=== PATIENT | female | born 1995 | race Two or more races ===

== ENCOUNTER 2019-03-22 03:57 | Emergency (ER) | payer MEDICAID ==
[~2019-03-22] VITALS: Ht 154.9 cm; Wt 81.8 kg
[2019-03-22] MEDS ORDERED: ibuprofen tablet 400 MG TABLET PO ONE (04:25)
[2019-03-22] MEDS ORDERED: PRED20TA PO (04:27)
[2019-03-22] MEDS ORDERED: AMOX500C2 PO (04:27)
[2019-03-22] MEDS ORDERED: ONDA4TAB6 PO (04:27)
[2019-03-22] MEDS ORDERED: HYDR-3965 PO (04:27)
[2019-03-22 04:49] VITALS: BP 138/90
== END 2019-03-22 04:45 | disposition home or self-care (01) ==
LOC: ER 03:58
DX: K02.9 Dental caries, unspecified (principal); Z79.899 Other long term (current) drug therapy
CPT/HCPCS: 99283

== ENCOUNTER 2019-12-17 18:37 | Emergency (ER) | payer MEDICAID ==
[~2019-12-17] VITALS: Ht 154.9 cm; Wt 81.8 kg
[~2019-12-17 18:37] MED LIST: ONDA4TAB6 PO
[2019-12-17 19:04] VITALS: BP 138/71
== END 2019-12-17 19:37 | disposition home or self-care (01) ==
LOC: ER 18:37
DX: S93.401A Sprain of unspecified ligament of right ankle, initial encounter (principal); M25.571 Pain in right ankle and joints of right foot; Z79.899 Other long term (current) drug therapy; X58.XXXA Exposure to other specified factors, initial encounter; Y93.89 Activity, other specified; Y92.89 Other specified places as the place of occurrence of the external cause; Y99.8 Other external cause status
CPT/HCPCS: 29515; 29540; 73610; 99283

== ENCOUNTER 2021-09-04 21:56 | Emergency (ER) | payer MEDICAID ==
[~2021-09-04] VITALS: Ht 152.4 cm; Wt 99.0 kg
[2021-09-04 22:40] LABS: CLARITY,URINE SLIGHTLY CLOUDY (Clear); COLOR,URINE YELLOW (Yellow); GLUCOSE, URINE NEGATIVE (Neg); KETONES,URINE TRACE mg/dl (Neg); LEUKOCYTE ESTERASE ,URINE NEGATIVE (Neg); NITRITES, URINE NEGATIVE (Neg); OCCULT BLOOD,URINE NEGATIVE (Neg); PROTEIN,URINE NEGATIVE (Neg); UROBILINOGEN,URINE 0.2 E.U/dL (0.2-1.0)
[2021-09-04 22:42] LABS: UA COLLECTION TYPE STRAIGHT CATH
[2021-09-04] MEDS ORDERED: morphine 4 MG/ML inj SYRINge IV PRN (22:50)
[2021-09-04] MEDS ORDERED: ondansetron/PF 4mg/2ml inj IV ONE (22:50)
[2021-09-04] MEDS ORDERED: normal saline 1000ML IV soln IVB ONE (22:50)
[2021-09-04 22:51] LABS: RBC,URINE 0-2 /HPF (0-2); WBC,URINE 0-4 /HPF (0-4)
[2021-09-04 22:52] LABS: BACTERIA,URINE 3+ /HPF (Neg); CAL OXALATE CRYSTALS 2+ /HPF (NEGATIVE); MUCUS STRANDS MANY /LPF (Neg); SQUAMOUS EPITHELIAL CELL,UR MANY /LPF (FEW)
[2021-09-04 23:01] LABS: BASOPHILS % (AUTO) 0.3 % (0-1); EOSINOPHILS # (AUTO) 0.1 X10'3 (0-0.9); EOSINOPHILS % (AUTO) 0.9 % (0-6); HEMATOCRIT 41.2 % (35.0-45.0); HEMOGLOBIN 13.9 g/dl (12.0-16.0); LYMPHOCYTES # (AUTO) 3.8 X10'3 (1.1-4.8); LYMPHOCYTES % (AUTO) 26.2 % (21-51); MEAN CORPUSCULAR HEMOGLOBIN 27.4 PG (27.0-31.0); MEAN CORPUSCULAR HGB CONC 33.9 g/dL (33.0-36.5); MEAN CORPUSCULAR VOLUME 80.9 FL (78-98); MEAN PLATELET VOLUME 6.9 FL (7.4-10.4); MONOCYTES # (AUTO) 0.9 X10'3 (0-0.9); MONOCYTES % (AUTO) 6.1 % (2-12); NEUTROPHILS # (AUTO) 9.6 X10'3 (1.8-7.7); NEUTROPHILS % (AUTO) 66.5 % (42-75); PLATELET COUNT 331 X10'3 (140-440); RED BLOOD COUNT 5.09 X10'6 (4.20-5.60); RED CELL DISTRIBUTION WIDTH 13.1 % (11.5-14.5); WHITE BLOOD COUNT 14.4 X10'3 (4.5-11.0)
[2021-09-04 23:16] LABS: HCG SERUM QL NEGATIVE
[2021-09-04 23:17] LABS: ALANINE AMINOTRANSFERASE 39 U/L (12-78); ALBUMIN 4.1 G/DL (3.4-5.0); ALBUMIN/GLOBULIN RATIO 1.1 (1.1-1.5); ALKALINE PHOSPHATASE 79 IU/L (46-116); ANION GAP 12 (8-16); ASPARTATE AMINO TRANSFERASE 16 U/L (10-37); BILIRUBIN,TOTAL 0.4 MG/DL (0.1-1.0); BLOOD UREA NITROGEN 11 MG/DL (7-18); BUN/CREATININE RATIO 14.5 (6.6-38.0); CALCIUM 9.2 MG/DL (8.5-10.1); CHLORIDE 104 MMOL/L (99-107); CHOLESTEROL 129 MG/DL (0-200); CREATININE 0.76 MG/DL (0.40-0.90); GLUCOSE 105 MG/DL (70-104); HDL CHOLESTEROL 43 MG/DL (35-60); LDL CHOLESTEROL 72 MG/DL (50-100); LIPASE 65 U/L (73-393); POTASSIUM 3.7 MMOL/L (3.5-5.1); SODIUM 143 MMOL/L (135-145); TOTAL CARBON DIOXIDE 27.5 MMOL/L (24-32); TOTAL PROTEIN 7.7 G/DL (6.4-8.2); TRIGLYCERIDES 121 MG/DL (20-135); eGFR > 90 ML/MIN
[2021-09-05] MEDS ORDERED: famotidine/PF 10 mg/ml inj IV ONE (00:50)
[2021-09-05] MEDS ORDERED: pantoprazole 40MG/D5 100ML BAG 100 ML IV ONE (00:50)
[2021-09-05] MEDS ORDERED: pantoprazole 40MG/NS 100ML BAG 100 ML IV ONE (01:00)
[2021-09-05 02:08] VITALS: BP 139/94
[2021-09-05] MEDS ORDERED: ONDA4TAB12 PO (02:30)
[2021-09-05] MEDS ORDERED: SUCR1TAB34 PO (02:30)
[2021-09-05] MEDS ORDERED: OMEP20CA15 PO (02:30)
[2021-09-05] MEDS ORDERED: FAMO20TA44 PO (02:30)
== END 2021-09-05 03:00 | disposition home or self-care (01) ==
LOC: ER 21:57
DX: U07.1 COVID-19 (principal); R10.13 Epigastric pain; K21.9 Gastro-esophageal reflux disease without esophagitis; Z79.899 Other long term (current) drug therapy
CPT/HCPCS: 36415; 74176; 80053; 80061; 81001; 83690; 84703; 85025; 87088; 96374; 96375; 99284; C9113; J2270; J2405; J3490; J7030

== ENCOUNTER 2022-09-16 11:20 | Emergency (ER) | payer MEDICAID ==
[~2022-09-16] VITALS: Ht 152.4 cm; Wt 230.0 kg
[~2022-09-16 11:20] MED LIST changes: +FAMO20TA44 PO; +OMEP20CA15 PO; +ONDA4TAB12 PO; +SUCR1TAB34 PO
[2022-09-16 11:24] VITALS: BP 143/84
[2022-09-16 11:56] LABS: URINE HCG NEGATIVE (NEG)
[2022-09-16] MEDS ORDERED: PANT-47 PO (12:04)
[2022-09-16] MEDS ORDERED: ONDA8TAB13 PO (12:04)
[2022-09-16] MEDS ORDERED: pantoprazole 40mg Tablet.DR PO ONE (12:05)
[2022-09-16] MEDS ORDERED: mag hydrox/Alum hydrox/simeth 30ml oral suspension PO ONE (12:05)
[2022-09-16] MEDS ORDERED: famotidine 20mg tablet PO ONE (12:05)
[2022-09-16] MEDS ORDERED: ondansetron 4mg rapidly disintigrating tab PO ONE (12:05)
[2022-09-16] MEDS ORDERED: LIDOcaine Viscous 15ml cup MM ONE (12:05)
[2022-09-16 12:18] LABS: CLARITY,URINE SLIGHTLY CLOUDY (Clear); COLOR,URINE STRAW (Yellow); GLUCOSE, URINE NEGATIVE (Neg); KETONES,URINE NEGATIVE (Neg); LEUKOCYTE ESTERASE ,URINE NEGATIVE (Neg); NITRITES, URINE NEGATIVE (Neg); OCCULT BLOOD,URINE NEGATIVE (Neg); PROTEIN,URINE NEGATIVE (Neg); UROBILINOGEN,URINE 0.2 E.U/dL (0.2-1.0)
[2022-09-16 12:24] LABS: UA COLLECTION TYPE CLN CATCH MIDSTREAM
[2022-09-16 12:26] LABS: BACTERIA,URINE FEW /HPF (Neg); RBC,URINE 0-2 /HPF (0-2); SQUAMOUS EPITHELIAL CELL,UR FEW /LPF (FEW); WBC,URINE 0-4 /HPF (0-4)
== END 2022-09-16 13:22 | disposition home or self-care (01) ==
LOC: ER 11:20
DX: K29.70 Gastritis, unspecified, without bleeding (principal); K21.9 Gastro-esophageal reflux disease without esophagitis; Z79.899 Other long term (current) drug therapy
CPT/HCPCS: 81001; 81025; 99284